=== PATIENT | female | born 1970 | race American Indian/Alaskan Native ===

== ENCOUNTER 2021-04-18 11:21 | Emergency (ER) | payer SELFPAY ==
[2021-04-18 11:37] VITALS: BP 167/84
--- NOTE | 2021-04-18 11:40 | Emergency Department Report ---
ED Extremity Problem HPI - General Chief complaint: Extremity Injury, Lower Stated complaint: LT LEG PAINS Time Seen by Provider: 04/18/21 11:40 Source: patient Mode of arrival: Wheelchair Limitations: No Limitations - History of Present Illness Initial comments: 50 yo comes to er with pain radiating from her low back down her left leg. no fall or trauma. no dysuria. no fever or chills. Ambulatory to triage. Denies abd pain, vag bleeding or discharge. Pain worse with movement and when she gets up in the AM Abd snt. No CVA tenderness Pos LLE straight leg raise. MD Complaint: extremity pain -: Gradual, days(s) History of Same: No Radiation: none Quality: aching Consistency: constant Improves with: nothing Worsens with: other (movement ) Associated Symptoms: denies other symptoms - Related Data Previous Rx's Medication Instructions Recorded Last Taken Type Cyclobenzaprine [Flexeril] 10 mg PO TID PRN #10 tablet 04/18/21 Unknown Rx predniSONE [Deltasone] 20 mg PO DAILY #5 tablet 04/18/21 Unknown Rx Allergies Allergy/AdvReac Type Severity Reaction Status Date / Time No Known Allergies Allergy Unverified 04/18/21 11:34 ED Review of Systems ROS: Stated complaint: LT LEG PAINS Other details as noted in HPI Comment: All other systems reviewed and negative ED Past Medical Hx - Past Medical History Previous Medical History?: No - Surgical History Past Surgical History?: Yes Additional Surgical History: Tubal PG - Family History Family history: no significant - Social History Smoking Status: Never Smoker Substance Use Type: None - Medications Home Medications: Home Medications Medication Instructions Recorded Confirmed Last Taken Type Cyclobenzaprine [Flexeril] 10 mg PO TID PRN #10 tablet 04/18/21 Unknown Rx predniSONE [Deltasone] 20 mg PO DAILY #5 tablet 04/18/21 Unknown Rx ED Physical Exam - General Limitations: No Limitations General appearance: alert, in no apparent distress - Head Head exam: Present: atraumatic, normocephalic - Eye Eye exam: Present: normal appearance - ENT ENT exam: Present: mucous membranes moist - Neck Neck exam: Present: normal inspection - Respiratory Respiratory exam: Present: normal lung sounds bilaterally. Absent: respiratory distress - Cardiovascular Cardiovascular Exam: Present: regular rate, normal rhythm. Absent: systolic murmur, diastolic murmur, rubs, gallop - GI/Abdominal GI/Abdominal exam: Present: soft, normal bowel sounds - Extremities Exam Extremities exam: Present: normal inspection - Expanded Lower Extremity Exam Left Knee exam: Present: normal inspection Lower Leg exam: Present: normal inspection Ankle exam: Present: normal inspection Foot/Toe exam: Present: normal inspection Gait: Positive: observed and normal - Back Exam Back exam: Present: normal inspection - Neurological Exam Neurological exam: Present: alert, oriented X3 - Psychiatric Psychiatric exam: Present: normal affect, normal mood - Skin Skin exam: Present: warm, dry, intact, normal color. Absent: rash ED Course Vital Signs 04/18/21 11:36 Temperature 98.1 F Pulse Rate 70 Respiratory 20 Rate Blood Pressure 167/84 O2 Sat by Pulse 100 Oximetry ED Medical Decision Making - Medical Decision Making pos lle straight leg raise medicated in ACC with dec in pain no fall or trauma pt is ambulatory and non ill appearing dc home with dc plan of care including pcp follow up. Pt verbalizes understanding of plan of care. Vital Signs 04/18/21 11:36 Temperature 98.1 F Pulse Rate 70 Respiratory 20 Rate Blood Pressure 167/84 O2 Sat by Pulse 100 Oximetry - Differential Diagnosis sciatica Critical care attestation.: If time is entered above; I have spent that time in minutes in the direct care of this critically ill patient, excluding procedure time. ED Disposition Clinical Impression: Sciatica of left side Disposition: DC-01 TO HOME OR SELFCARE Is pt being admited?: No Does the pt Need Aspirin: No Condition: Stable Instructions: Sciatica Additional Instructions: meds as ordered follow up with pcp next week local referral below stay well hydrated with water motrin or tylenol can be added for pain stretching low back may help warm compresses to back will help pain Prescriptions: predniSONE [Deltasone] 20 mg PO DAILY #5 tablet Cyclobenzaprine [Flexeril] 10 mg PO TID PRN #10 tablet PRN Reason: Muscle Spasm Referrals: [facility] MD [Staff Physician] - 3-5 Days Time of Disposition: 12:06
[2021-04-18] MEDS ORDERED: methylPREDNISolone ACETATE 80 MG/1 ML INJ IM ONE (11:43)
[2021-04-18] MEDS ORDERED: CYCLOBENZAPRINE 10 MG TAB PO ONE (11:43)
== END 2021-04-18 12:15 | disposition home or self-care (01) ==
LOC: EDBD → ED 11:21
DX: M54.32 Sciatica, left side (principal); Z79.899 Other long term (current) drug therapy; Z98.51 Tubal ligation status
CPT/HCPCS: 99281